=== PATIENT | male | born 1990 | race Caucasian/White ===

== ENCOUNTER 2018-08-28 07:14 | Emergency (ER) | payer OTHER ==
[2018-08-28 07:19] VITALS: Ht 180.3 cm
[2018-08-28 08:18] VITALS: BP 129/88
== END 2018-08-28 08:18 | disposition home or self-care (01) ==
LOC: ED 07:14
DX: S93.401A Sprain of unspecified ligament of right ankle, initial encounter (principal); X50.1XXA Overexertion from prolonged static or awkward postures, initial encounter; Y93.89 Activity, other specified; Y92.89 Other specified places as the place of occurrence of the external cause; Y99.8 Other external cause status
CPT/HCPCS: 99406; Q0092